=== PATIENT | female | born 1950 | race Hispanic/Latino ===

== ENCOUNTER 2018-07-04 16:48 | Emergency (ER) | payer MEDICAID ==
[2018-07-04 16:48] VITALS: BMI 25.6
[2018-07-04 16:59] VITALS: BP 109/60; PULSE 72; RESP 18; TEMP 99.3; O2SAT 99
--- NOTE | 2018-07-04 18:14 | ED PDOC ---
Upper Extremity Pain/Injury Time Seen by Provider: 07/04/18 17:03 Chief Complaint (Nursing): Upper Extremity Problem/Injury Chief Complaint (Provider): Right Arm Pain History Per: Patient History/Exam Limitations: no limitations Onset/Duration Of Symptoms: Days (x6) Current Symptoms Are (Timing): Still Present Additional Complaint(s): 67 year old female with an extensive pmhx presents to the ED for right arm pain. Patient was diagnosed with a fracture to her right humerus at [facility] [place] on , and was sent home with a script for Motrin and a follow up orthopedic appt for 07/10. She presents at this time, complaining of pain to the affected arm, and is requesting a cast. She denies any new injury since the diagnosis. PMD: Trevon Chairez Past Medical History Reviewed: Historical Data, Nursing Documentation, Vital Signs Vital Signs: Last Vital Signs Temp 99.3 F 07/04/18 16:57 Pulse 72 07/04/18 16:57 Resp 18 07/04/18 16:57 BP 109/60 07/04/18 16:57 Pulse Ox 99 07/04/18 16:57 - Medical History PMH: Anxiety, Diabetes, Fractures, Hepatitis (a, b) Denies: Chronic Kidney Disease Other PMH: cirrhosis of liver - Surgical History Surgical History: Other surgeries: left leg - Family History Family History: States: Unknown Family Hx - Social History Current smoker - smoking cessation education provided: Yes Alcohol: Other (hx of alcohol abuse) Drugs: Denies - Home Medications Home Medications: Ambulatory Orders Medication Instructions Recorded Aspirin [Adult Aspirin] 1 tab PO DAILY 06/01/18 Folic Acid [Folic Acid] 1 tab PO DAILY 06/01/18 Lactulose [Enulose] 30 ml PO TID 06/01/18 Loperamide [Imodium] 1 cap PO PRN 06/01/18 Multivitamin [Multivitamins] 1 tab PO DAILY 06/01/18 PARoxetine CR [Paxil CR] 1 tab PO DAILY 06/01/18 Pantoprazole [Protonix EC Tab] 1 tab PO DAILY 06/01/18 Propranolol [Inderal] 1 tab PO BID 06/01/18 Pyridoxine [Vitamin B6] 1 tab PO DAILY 06/01/18 Spironolactone [Aldactone] 1 tab PO DAILY 06/01/18 metFORMIN [glucOPHAGE] 1 tab PO BID 06/01/18 traZODone [Desyrel] 1 tab PO HS 06/01/18 - Allergies Allergies/Adverse Reactions: Allergies Allergy/AdvReac Type Severity Reaction Status Date / Time diphenhydramine Allergy RASH Verified 06/01/18 10:45 [From Benadryl] egg Allergy RASH Verified 06/01/18 09:58 Review of Systems ROS Statement: Except As Marked, All Systems Reviewed And Found Negative Musculoskeletal: Positive for: Arm Pain (right) Physical Exam - Reviewed Nursing Documentation Reviewed: Yes Vital Signs Reviewed: Yes - Physical Exam Appears: Positive for: No Acute Distress Skin: Positive for: Normal Color, Warm, Dry Cardiovascular/Chest: Positive for: Regular Rate, Rhythm Respiratory: Positive for: Normal Breath Sounds. Negative for: Accessory Muscle Use, Respiratory Distress Pulses-Radial (R): 2+ Extremity: Positive for: Tenderness (mid humeral shaft), Other (right arm in sling; distal sensation intact) Neurologic/Psych: Positive for: Alert, Oriented, Other (slurred speech, etoh on breath) - ECG O2 Sat by Pulse Oximetry: 99 (RA) Pulse Ox Interpretation: Normal Medical Decision Making Medical Decision Making: Time: 1717 Initial Impression: continued pain due to humeral head fracture, positive etoh Initial Plan: --Alcohol serum --CMP --CBC with differential --Motrin 600 mg PO --Right humerus XR Scribe Attestation: Documented by Judi Marshall, acting as a scribe for Abril De Leon PA-C. Provider Scribe Attestation: All medical record entries made by the Scribe were at my direction and personally dictated by me. I have reviewed the chart and agree that the record accurately reflects my personal performance of the history, physical exam, medical decision making, and the department course for this patient. I have also personally directed, reviewed, and agree with the discharge instructions and disposition. Disposition - Clinical Impression Clinical Impression: Arm pain - Patient ED Disposition Is Patient to be Admitted: No - Disposition Disposition: Routine/Home Disposition Time: 19:40 Condition: STABLE Additional Instructions: follow up with [facility] as scheduled on 07/10! Instructions: Upper Arm Fracture Forms: [facility] (Korean) - POA Present On Arrival: Falls Or Trauma
--- NOTE | 2018-07-05 07:37 | RAD ---
PROCEDURE: Radiographs of the right humerus. HISTORY: fxr COMPARISON: None. FINDINGS: BONES: There is a comminuted fracture with limited impaction of the major fracture fragment at the proximal mid to the metaphysis and epiphysis of the right humerus. No dislocation or subluxation. Bony fragments are felt to be inferior to the glenohumeral joint though heterotopic soft tissue calcification is not completely excluded. Mid and distal segments of the right humerus appear intact and unremarkable. SOFT TISSUES: As above. OTHER FINDINGS: None. IMPRESSION: Comminuted fracture with mild impaction at proximal epiphysis/metaphysis right humerus. No dislocation or subluxation.
== END 2018-07-04 20:32 | disposition home or self-care (01) ==
LOC: H.ER 16:48
DX: M79.601 Pain in right arm (principal)